=== PATIENT | female | born 1955 | race Caucasian/White ===

== ENCOUNTER 2019-01-27 11:31 | Emergency (ER) | payer MEDICAID ==
--- NOTE | 2019-01-27 12:07 | EDM.PDOC ---
ED HPI GENERAL MEDICAL PROBLEM - General Chief Complaint: ENT Problem Stated Complaint: FB STUCK IN THROAT Time Seen by Provider: 01/27/19 11:37 Source of Information: Reports: Patient History Limitations: Reports: No Limitations - History of Present Illness INITIAL COMMENTS - FREE TEXT/NARRATIVE: 63 yo F with h/o GERD comes in today with complaints of feeling like there is something caught in her throat. She states she has had this feeling for the past 1.5 days. She thinks it may have been a pill or a hot dog. She recently got dentures o Friday and admits she was not wearing them when she ate her hot dog. She states that she wanted to clean them but denies feeling like they don' t fit well or that she is allergic to the glue. She is able to still eat and drink water, though it feels uncomfortable and she states she felt like she had difficulty breathing last night and a cough with some blood this AM. She tried cough medicine last night with no relief. Currently denies any pain, SOB, F/C, N /V. She did recently have an endoscopy on 10/30/18 and was found she had "something wrong with my stomach". PCP is Sophie Lopez. Throat Pain Score (Numeric/FACES): 8 - Related Data Allergies Allergy/AdvReac Type Severity Reaction Status Date / Time No Known Allergies Allergy Verified 01/27/19 11:37 Home Meds: Home Meds Albuterol Sulfate [Albuterol Sulfate Hfa] 2 puff INH QID PRN 01/27/19 [History] Bismuth Subsalicylate [Pepto-Bismol] 262 mg PO ASDIRECTED PRN 01/27/19 [History] Budesonide/Formoterol [Symbicort 160-4.5 MCG] 1 puff INH BID 01/27/19 [History] Calcium Carbonate [Tums] 300 mg PO QID PRN 01/27/19 [History] Celecoxib [CeleBREX] 100 mg PO DAILY 01/27/19 [History] Codeine/Promethazine [Phenergan with Codeine] 5 ml PO Q6HR PRN 01/27/19 [History ] Colestipol [Colestipol HCl] 1 gm PO BID 01/27/19 [History] Dexlansoprazole [Dexilant] 30 mg PO DAILY 01/27/19 [History] Dicyclomine HCl [Bentyl] 10 mg PO QID PRN 01/27/19 [History] Escitalopram Oxalate [Lexapro] 10 mg PO DAILY 01/27/19 [History] Ondansetron [Zofran ODT] 4 mg SL Q6HR PRN 01/27/19 [History] Sucralfate [Carafate] 1 gr PO QID 01/27/19 [History] ED ROS ENT - Review of Systems Review Of Systems: See Below Constitutional: Reports: No Symptoms. Denies: Fever, Chills HEENT: Reports: Other (recently got dentures) Respiratory: Reports: Cough (with some blood this AM) Endocrine: Reports: No Symptoms GI/Abdominal: Reports: No Symptoms. Denies: Abdominal Pain, Constipation, Diarrhea, Nausea, Vomiting : Reports: No Symptoms Musculoskeletal: Reports: No Symptoms Skin: Reports: No Symptoms Neurological: Reports: No Symptoms Hematologic/Lymphatic: Reports: No Symptoms Immunologic: Reports: No Symptoms ED EXAM, ENT - Physical Exam Exam: See Below Exam Limited By: No Limitations General Appearance: Alert, WD/WN, No Apparent Distress Eye Exam: Bilateral Eye: EOMI, Normal Inspection, PERRL Nose: Normal Inspection, Normal Mucousa, No Blood Mouth/Throat: Normal Gums, Tonsillar Erythema, Other (some sores present on soft palate). No: Normal Teeth (no teeth, not wearing dentures), Drooling, Muffled Voice Head: Atraumatic, Normocephalic Neck: Normal Inspection, Supple, Non-Tender, Full Range of Motion Respiratory/Chest: No Respiratory Distress, Lungs Clear, Normal Breath Sounds, No Accessory Muscle Use, Chest Non-Tender Cardiovascular: Normal Peripheral Pulses, Regular Rate, Rhythm, No Edema, No Gallop, No JVD, No Murmur, No Rub GI/Abdominal: Normal Bowel Sounds, Soft, Non-Tender, No Organomegaly, No Distention, No Abnormal Bruit, No Mass Neurological: Alert, Oriented, CN II-XII Intact Psychiatric: Normal Affect, Normal Mood Skin: Warm, Dry, Intact, Normal Color, No Rash Course - Vital Signs Last Recorded V/S: Last Vital Signs Temp 97.4 F 01/27/19 11:39 Pulse 95 01/27/19 11:39 Resp 16 01/27/19 11:39 BP 158/88 H 01/27/19 11:39 Pulse Ox 99 01/27/19 11:39 - Orders/Labs/Meds Orders: Active Orders 24 hr Category Date Time Status CULTURE STREP A CONFIRMATION [RM] Stat Lab 01/27/19 12:15 Results Rapid Strep w/culture conf [STREP SCRN A RAPID W CULT Lab 01/27/19 12:15 Results CONF] [RM] Stat - Re-Assessments/Exams Free Text/Narrative Re-Assessment/Exam: 01/27/19 12:13 Exam not impressive for foreign body obstruction as she is able to swallow, she is not SOB, and is able to eat and drink though it is uncomfortable. There are some sores present on the soft palate. This is likely a viral infection or a reaction to her dentures (not fitting well vs. allergic to the paste). Ordered a Strep screen. 01/27/19 12:44 Strep negative. At this time, she is stable enough to go home. I explained to her this is likely viral in nature and will likely go away on its own. Recommend f/u with PCP and she should return to ED if worsening of symptoms. She agrees with this plan. Departure - Departure Time of Disposition: 12:48 Disposition: Home, Self-Care 01 Condition: Good Clinical Impression: Viral sore throat - Discharge Information *PRESCRIPTION DRUG MONITORING PROGRAM REVIEWED*: Not Applicable *COPY OF PRESCRIPTION DRUG MONITORING REPORT IN PATIENT [place]: Not Applicable Instructions: Sore Throat, [id number] Referrals: Sophie Lopez NP [Primary Care Provider] - Forms: ED Department Discharge Additional Instructions: You were seen in the ED today for possible foreign body stuck in your throat. On exam, it was not found that you had anything stuck in your throat and the fact you can still eat and drink are also signs there is no obstruction at this time. However, there were some sores seen on exam at the back of the throat, which may mean you have a viral infection. Your strep throat culture was negative here, so it is likely a different virus. Symptoms should improve on their own with time. Recommend follow up with your primary care provider. Please return to ED if new or worsening symptoms, such as drooling, not being able to swallow, difficulty breathing. - My Orders Last 24 Hours: My Active Orders 01/27/19 12:15 CULTURE STREP A CONFIRMATION [RM] Stat Rapid Strep w/culture conf [STREP SCRN A RAPID W CULT CONF] [RM] Stat - Assessment/Plan Last 24 Hours: My Active Orders 01/27/19 12:15 CULTURE STREP A CONFIRMATION [] Stat Rapid Strep w/culture conf [STREP SCRN A RAPID W CULT CONF] [RM] Stat
== END 2019-01-27 12:56 | disposition home or self-care (01) ==
LOC: JD.ED 11:31
DX: J02.9 Acute pharyngitis, unspecified (principal); Z79.899 Other long term (current) drug therapy
CPT/HCPCS: 87081; 87430; 99282; 99283

== ENCOUNTER 2020-11-14 18:32 | Inpatient (IN) | payer MEDICARE, MEDICAID ==
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
[2020-11-14] MEDS ORDERED: Metoclopramide 10 MG/2 ML SDV IVPUSH ONE (19:04)
[2020-11-14] MEDS ORDERED: Lactated Ringers 1,000 ML IV ONE (19:04)
[2020-11-14] MEDS ORDERED: diphenhydrAMINE 50 MG/ML SDV IVPUSH ONE (19:06)
[2020-11-14 19:44] LABS: HEMOGLOBIN A1C 5.9 %
[2020-11-14] MEDS: Acetaminophen 325 MG Tab PO PRN (20:33)
[2020-11-14] MEDS ORDERED: Sodium Chloride 0.9% 1,000 ML IV SCH (21:00)
[2020-11-14] MEDS ORDERED: cefTRIAXone 2 GM in Sodium Chloride 0.9% 100 ML IV ONE (21:20)
[2020-11-14] MEDS ORDERED: Metoclopramide 10 MG/2 ML SDV IVPUSH PRN (23:44)
[2020-11-15] MEDS: Dextrose 5%-0.9% NaCl with KCl 1,000 ML IV SCH ×4 (00:12→21:14)
[2020-11-15] MEDS: Acetaminophen 325 MG Tab PO PRN ×3 (02:22→19:51)
--- NOTE | 2020-11-15 07:13 | CR ---
Chest: Portable view of the chest was obtained. Comparison: Prior chest x-ray of 03/14/19. Poor inspiratory effort is seen. Slight areas of atelectasis are seen within both lung bases. No definite acute parenchymal change is seen on this exam. Bony structures are grossly intact. Surgical clips are noted from prior cholecystectomy. Impression: 1. Poor inspiratory effort. Mild atelectasis is noted within both lung bases. 2. Nothing acute is definitely seen. Diagnostic code #2
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
[2020-11-15] MEDS ORDERED: Dicyclomine 10 MG Cap PO PRN (08:50)
[2020-11-15] MEDS ORDERED: Ibuprofen 600 MG Tab PO ONE (08:53)
[2020-11-15] MEDS ORDERED: Albuterol/Ipratropium 3.0-0.5 MG/3 ML Neb Soln NEB PRN (08:58)
[2020-11-15] MEDS ORDERED: DEXLANSOPRAZOLE 30 MG PO SCH (09:00)
[2020-11-15] MEDS ORDERED: Non-Formulary Medication 1 Each (Budesonide/Formoterol 1 PUFF) INH SCH (09:00)
[2020-11-15] MEDS ORDERED: COLESTIPOL 1 GM PO SCH (09:00)
[2020-11-15] MEDS ORDERED: ESCITALOPRAM OXALATE 10 MG PO SCH (09:00)
[2020-11-15] MEDS ORDERED: Celecoxib 100 MG Cap PO SCH (09:00)
[2020-11-15] MEDS: Sucralfate 1 GM Tab PO SCH ×5 (09:45→21:16)
[2020-11-15] MEDS: Nicotine 14 MG/24 Hr Patch TRDERM SCH (11:54)
[2020-11-15] MEDS ORDERED: Non-Formulary Medication 1 Each (Omeprazole 20 MG) PO SCH (16:00)
[2020-11-15] MEDS: Pantoprazole 40 MG Tab.CR PO SCH (16:53)
[2020-11-15] MEDS: Ondansetron 4 MG/2 ML SDV IV PRN (20:24)
[2020-11-15] MEDS: cefTRIAXone 2 GM in Sodium Chloride 0.9% 100 ML IV SCH (20:32)
[2020-11-16] MEDS: Ondansetron 4 MG/2 ML SDV IV PRN (03:40)
[2020-11-16] MEDS: Dextrose 5%-0.9% NaCl with KCl 1,000 ML IV SCH (03:48)
[2020-11-16] MEDS: Pantoprazole 40 MG Tab.CR PO SCH ×2 (05:16→16:07)
--- NOTE | 2020-11-16 07:12 | PCM.PN ---
- General Info Date of Service: 11/16/20 Admission Dx/Problem (Free Text): Admission Diagnosis/Problem Admission Diagnosis/Problem Pyelonephritis Subjective Update: In to see Jody. She is reports she feels better but states she thinks she is constipated. She got milk of mag with no success and we will start scheduled Colace. We did discuss how she has not had any real solid intake for quite some time and this may lead to no bowel movements. Labs continued to look good with no leukocytosis and a CRP that is coming down. Patient reports she was instructed by general surgery to only take in clear liquids given her prior gastric ulcer. Will contact nurse practitioner at [facility] who patient has recently seen for clarification. Blood cultures are negative thus far. Urine cultures are growing mixed jose armando. Patient did have very low-grade fever of 100.6 last night. No other concerns. Functional Status: Reports: Pain Controlled, Tolerating Diet (full liquids ), Ambulating, Urinating. Denies: New Symptoms - Review of Systems General: Reports: No Symptoms. Denies: Fever, Weakness, Fatigue, Malaise HEENT: Reports: No Symptoms. Denies: Headaches, Sore Throat Pulmonary: Reports: No Symptoms. Denies: Shortness of Breath, Cough, Sputum, Wheezing Cardiovascular: Reports: No Symptoms. Denies: Chest Pain, Palpitations Gastrointestinal: Reports: Constipation (feels constipated ). Denies: Abdominal Pain, Diarrhea, Nausea, Vomiting Genitourinary: Reports: No Symptoms. Denies: Pain Musculoskeletal: Reports: No Symptoms Skin: Reports: No Symptoms. Denies: Cyanosis Neurological: Reports: No Symptoms. Denies: Confusion, Difficulty Walking, Gait Disturbance Psychiatric: Reports: No Symptoms - Patient Data Vitals - Most Recent: Last Vital Signs Temp 98.4 F 11/16/20 03:18 Pulse 102 H 11/16/20 03:18 Resp 20 11/16/20 03:18 BP 149/61 H 11/16/20 03:18 Pulse Ox 92 L 11/16/20 03:18 Weight - Most Recent: 429 lb 0.313 oz I&O - Last 24 Hours: Intake & Output 11/15/20 11/16/20 11/16/20 22:59 06:59 14:59 Intake Total 2740 1225 Output Total 1300 1350 Balance 1440 -125 Lab Results Last 24 Hours: Laboratory Results - last 24 hr 11/15/20 11/15/20 11/16/20 Range/Units 06:40 06:48 06:27 WBC 5.02 (3.98-10.04) K/mm3 RBC 3.81 L (3.98-5.22) M/mm3 Hgb 11.4 (11.2-15.7) gm/dl Hct 35.2 (34.1-44.9) % MCV 92.4 (79.4-94.8) fl MCH 29.9 (25.6-32.2) pg MCHC 32.4 (32.2-35.5) g/dl RDW Std Deviation 45.1 (36.4-46.3) fL Plt Count 171 L (182-369) K/mm3 MPV 9.9 (9.4-12.3) fl Neut % (Auto) 75.9 H (34.0-71.1) % Lymph % (Auto) 13.5 L (19.3-51.7) % [place] % (Auto) 9.0 (4.7-12.5) % Eos % (Auto) 1.0 (0.7-5.8) Baso % (Auto) 0.4 (0.1-1.2) % Neut # (Auto) 3.81 (1.56-6.13) K/mm3 Lymph # (Auto) 0.68 L (1.18-3.74) K/mm3 [place] # (Auto) 0.45 H (0.24-0.36) K/mm3 Eos # (Auto) 0.05 (0.04-0.36) K/mm3 Baso # (Auto) 0.02 (0.01-0.08) K/mm3 Sodium 140 (136-145) mEq/L Potassium 4.0 (3.5-5.1) mEq/L Chloride 106 (98-107) mEq/L Carbon Dioxide 24 (21-32) mEq/L Anion Gap 14.0 (5-15) BUN 13 (7-18) mg/dL Creatinine 1.3 H (0.55-1.02) mg/dL Est Cr Clr Drug Dosing 32.12 mL/min Estimated GFR (MDRD) 41 (>60) mL/min BUN/Creatinine Ratio 10.0 L (14-18) Glucose 151 H (80-115) mg/dL Calcium 8.2 L (8.5-10.1) mg/dL Magnesium (1.8-2.4) mg/dl Total Bilirubin 0.6 (0.2-1.0) mg/dL AST 61 H (15-37) U/L ALT 76 H (14-59) U/L Alkaline Phosphatase 70 (46-116) U/L C-Reactive Protein 28.1 H* (<1.0) mg/dL Total Protein 6.2 L (6.4-8.2) g/dl Albumin 2.6 L (3.4-5.0) g/dl Globulin 3.6 gm/dL Albumin/Globulin Ratio 0.7 L (1-2) 11/16/20 Range/Units 06:27 WBC (3.98-10.04) K/mm3 RBC (3.98-5.22) M/mm3 Hgb (11.2-15.7) gm/dl Hct (34.1-44.9) % MCV (79.4-94.8) fl MCH (25.6-32.2) pg MCHC (32.2-35.5) g/dl RDW Std Deviation (36.4-46.3) fL Plt Count (182-369) K/mm3 MPV (9.4-12.3) fl Neut % (Auto) (34.0-71.1) % Lymph % (Auto) (19.3-51.7) % [place] % (Auto) (4.7-12.5) % Eos % (Auto) (0.7-5.8) Baso % (Auto) (0.1-1.2) % Neut # (Auto) (1.56-6.13) K/mm3 Lymph # (Auto) (1.18-3.74) K/mm3 [place] # (Auto) (0.24-0.36) K/mm3 Eos # (Auto) (0.04-0.36) K/mm3 Baso # (Auto) (0.01-0.08) K/mm3 Sodium 140 (136-145) mEq/L Potassium 4.3 (3.5-5.1) mEq/L Chloride 108 H (98-107) mEq/L Carbon Dioxide 21 (21-32) mEq/L Anion Gap 15.3 H (5-15) BUN 8 (7-18) mg/dL Creatinine 1.2 H (0.55-1.02) mg/dL Est Cr Clr Drug Dosing 34.80 mL/min Estimated GFR (MDRD) 45 (>60) mL/min BUN/Creatinine Ratio 6.7 L (14-18) Glucose 154 H (80-115) mg/dL Calcium 7.9 L (8.5-10.1) mg/dL Magnesium 1.9 (1.8-2.4) mg/dl Total Bilirubin 0.4 (0.2-1.0) mg/dL AST 103 H (15-37) U/L ALT 95 H (14-59) U/L Alkaline Phosphatase 78 (46-116) U/L C-Reactive Protein (<1.0) mg/dL Total Protein 5.8 L (6.4-8.2) g/dl Albumin 2.3 L (3.4-5.0) g/dl Globulin 3.5 gm/dL Albumin/Globulin Ratio 0.7 L (1-2) Nash Results Last 24 Hours: Microbiology 11/14/20 19:41 Aerobic Blood Culture - Preliminary Blood - Venous NO GROWTH AFTER 1 DAY Anaerobic Blood Culture - Preliminary NO GROWTH AFTER 1 DAY 11/14/20 19:47 Aerobic Blood Culture - Preliminary Blood - Venous - Lab Draw NO GROWTH AFTER 1 DAY Anaerobic Blood Culture - Preliminary NO GROWTH AFTER 1 DAY Med Orders - Current: Current Medications Acetaminophen (Tylenol) 650 mg PO Q4H PRN PRN Reason: Pain (Mild 1-3)/fever Last Admin: 11/15/20 19:51 Dose: 650 mg Documented by: Albuterol/Ipratropium (Duoneb 3.0-0.5 Mg/3 Ml) 3 ml NEB Q6HRRT PRN PRN Reason: wheezing/SOB/cough Dicyclomine HCl (Bentyl) 20 mg PO QID PRN PRN Reason: Abdominal Pain Potassium Chloride/Dextrose/Sod Cl (D5 Ns With 20 Meq Kcl) 1,000 mls @ 150 mls/hr IV ASDIRECTED DEANNA Last Admin: 11/16/20 03:48 Dose: 150 mls/hr Documented by: Ceftriaxone Sodium 2 gm/ (Sodium Chloride) 100 mls @ 200 mls/hr IV Q24H [facility] Last Admin: 11/15/20 20:32 Dose: 200 mls/hr Documented by: Magnesium Hydroxide (Milk Of Magnesia) 30 ml PO ONETIME ONE Stop: 11/16/20 09:01 Metoclopramide HCl (Reglan) 7.5 mg IVPUSH Q6H PRN PRN Reason: Nausea/Vomiting Miscellaneous Information (Remove Patch) 0 ea TRDERM Q24H [facility] Nicotine (Habitrol) 14 mg TRDERM Q24H [facility] Last Admin: 11/15/20 11:54 Dose: Not Given Documented by: Ondansetron HCl (Zofran) 4 mg IV Q6H PRN PRN Reason: Nausea/Vomiting Last Admin: 11/16/20 03:40 Dose: 4 mg Documented by: Pantoprazole Sodium (Protonix) 40 mg PO BIDAC [facility] Last Admin: 11/16/20 05:16 Dose: 40 mg Documented by: Sucralfate (Carafate) 1 gm PO QID [facility] Last Admin: 11/15/20 21:16 Dose: 1 gm Documented by: Discontinued Medications Acetaminophen (Tylenol) 650 mg PO Q4H PRN PRN Reason: Pain Last Admin: 11/15/20 07:47 Dose: 650 mg Documented by: Celecoxib (Celebrex) 100 mg PO DAILY [facility] Last Admin: 11/15/20 10:11 Dose: Not Given Documented by: Diphenhydramine HCl (Benadryl) 12.5 mg IVPUSH ONETIME ONE Stop: 11/14/20 19:07 Last Admin: 11/14/20 19:23 Dose: 12.5 mg Documented by: Lactated Ringer's (Ringers, Lactated) 1,000 mls @ 999 mls/hr IV .BOLUS ONE Stop: 11/14/20 20:04 Last Admin: 11/14/20 19:23 Dose: 999 mls/hr Documented by: Sodium Chloride (Normal Saline) 1,000 mls @ 999 mls/hr IV ASDIRECTED [facility] Last Admin: 11/14/20 21:18 Dose: 999 mls/hr Documented by: Ceftriaxone Sodium 2 gm/ (Sodium Chloride) 100 mls @ 200 mls/hr IV ONETIME ONE Stop: 11/14/20 21:49 Last Admin: 11/14/20 21:28 Dose: 200 mls/hr Documented by: Ibuprofen (Motrin) 600 mg PO ONETIME ONE Stop: 11/15/20 08:54 Last Admin: 11/15/20 09:44 Dose: 600 mg Documented by: Metoclopramide HCl (Reglan) 7.5 mg IVPUSH ONETIME ONE Stop: 11/14/20 19:05 Last Admin: 11/14/20 19:23 Dose: 7.5 mg Documented by: Non-Formulary Medication (Budesonide/Formoterol) 1 puff INH BID [facility] Last Admin: 11/15/20 10:10 Dose: Not Given Documented by: Non-Formulary Medication (Colestipol) 1 gm PO BID [facility] Last Admin: 11/15/20 10:11 Dose: Not Given Documented by: Non-Formulary Medication (Dexlansoprazole [Dexilant]) 30 mg PO DAILY [facility] Last Admin: 11/15/20 10:11 Dose: Not Given Documented by: Non-Formulary Medication (Escitalopram Oxalate [Lexapro]) 10 mg PO DAILY [facility] Last Admin: 11/15/20 10:11 Dose: Not Given Documented by: Non-Formulary Medication (Omeprazole) 20 mg PO BIDAC [facility] - Exam Quality Assessment: DVT Prophylaxis. No: Supplemental Oxygen, Urine Catheter General: Alert, Oriented, Cooperative, No Acute Distress HEENT: Pupils Equal, Pupils Reactive, Mucous Membr. Moist/[place]: Supple, Trachea Midline Lungs: Clear to Auscultation, Normal Respiratory Effort Cardiovascular: Regular Rate, Regular Rhythm GI/Abdominal Exam: Normal Bowel Sounds, Soft, Non-Tender, No Distention (Female) Exam: Deferred Extremities: Normal Inspection, Normal Range of Motion, Non-Tender, No Pedal Edema, Normal Capillary Refill Skin: Warm, Dry, Intact Neurological: No New Focal Deficit Psy/Mental Status: Alert, Normal Affect, Normal Mood - Patient Data Lab Results Last 24 hrs: Laboratory Results - last 24 hr 11/15/20 11/15/20 11/16/20 Range/Units 06:40 06:48 06:27 WBC 5.02 (3.98-10.04) K/mm3 RBC 3.81 L (3.98-5.22) M/mm3 Hgb 11.4 (11.2-15.7) gm/dl Hct 35.2 (34.1-44.9) % MCV 92.4 (79.4-94.8) fl MCH 29.9 (25.6-32.2) pg MCHC 32.4 (32.2-35.5) g/dl RDW Std Deviation 45.1 (36.4-46.3) fL Plt Count 171 L (182-369) K/mm3 MPV 9.9 (9.4-12.3) fl Neut % (Auto) 75.9 H (34.0-71.1) % Lymph % (Auto) 13.5 L (19.3-51.7) % [place] % (Auto) 9.0 (4.7-12.5) % Eos % (Auto) 1.0 (0.7-5.8) Baso % (Auto) 0.4 (0.1-1.2) % Neut # (Auto) 3.81 (1.56-6.13) K/mm3 Lymph # (Auto) 0.68 L (1.18-3.74) K/mm3 [place] # (Auto) 0.45 H (0.24-0.36) K/mm3 Eos # (Auto) 0.05 (0.04-0.36) K/mm3 Baso # (Auto) 0.02 (0.01-0.08) K/mm3 Sodium 140 (136-145) mEq/L Potassium 4.0 (3.5-5.1) mEq/L Chloride 106 (98-107) mEq/L Carbon Dioxide 24 (21-32) mEq/L Anion Gap 14.0 (5-15) BUN 13 (7-18) mg/dL Creatinine 1.3 H (0.55-1.02) mg/dL Est Cr Clr Drug Dosing 32.12 mL/min Estimated GFR (MDRD) 41 (>60) mL/min BUN/Creatinine Ratio 10.0 L (14-18) Glucose 151 H (80-115) mg/dL Calcium 8.2 L (8.5-10.1) mg/dL Magnesium (1.8-2.4) mg/dl Total Bilirubin 0.6 (0.2-1.0) mg/dL AST 61 H (15-37) U/L ALT 76 H (14-59) U/L Alkaline Phosphatase 70 (46-116) U/L C-Reactive Protein 28.1 H* (<1.0) mg/dL Total Protein 6.2 L (6.4-8.2) g/dl Albumin 2.6 L (3.4-5.0) g/dl Globulin 3.6 gm/dL Albumin/Globulin Ratio 0.7 L (1-2) 11/16/20 Range/Units 06:27 WBC (3.98-10.04) K/mm3 RBC (3.98-5.22) M/mm3 Hgb (11.2-15.7) gm/dl Hct (34.1-44.9) % MCV (79.4-94.8) fl MCH (25.6-32.2) pg MCHC (32.2-35.5) g/dl RDW Std Deviation (36.4-46.3) fL Plt Count (182-369) K/mm3 MPV (9.4-12.3) fl Neut % (Auto) (34.0-71.1) % Lymph % (Auto) (19.3-51.7) % [place] % (Auto) (4.7-12.5) % Eos % (Auto) (0.7-5.8) Baso % (Auto) (0.1-1.2) % Neut # (Auto) (1.56-6.13) K/mm3 Lymph # (Auto) (1.18-3.74) K/mm3 [place] # (Auto) (0.24-0.36) K/mm3 Eos # (Auto) (0.04-0.36) K/mm3 Baso # (Auto) (0.01-0.08) K/mm3 Sodium 140 (136-145) mEq/L Potassium 4.3 (3.5-5.1) mEq/L Chloride 108 H (98-107) mEq/L Carbon Dioxide 21 (21-32) mEq/L Anion Gap 15.3 H (5-15) BUN 8 (7-18) mg/dL Creatinine 1.2 H (0.55-1.02) mg/dL Est Cr Clr Drug Dosing 34.80 mL/min Estimated GFR (MDRD) 45 (>60) mL/min BUN/Creatinine Ratio 6.7 L (14-18) Glucose 154 H (80-115) mg/dL Calcium 7.9 L (8.5-10.1) mg/dL Magnesium 1.9 (1.8-2.4) mg/dl Total Bilirubin 0.4 (0.2-1.0) mg/dL AST 103 H (15-37) U/L ALT 95 H (14-59) U/L Alkaline Phosphatase 78 (46-116) U/L C-Reactive Protein (<1.0) mg/dL Total Protein 5.8 L (6.4-8.2) g/dl Albumin 2.3 L (3.4-5.0) g/dl Globulin 3.5 gm/dL Albumin/Globulin Ratio 0.7 L (1-2) Result Diagrams: 11/16/20 06:27 11/16/20 06:27 Nash Results Last 24 hrs: Microbiology 11/14/20 19:41 Aerobic Blood Culture - Preliminary Blood - Venous NO GROWTH AFTER 1 DAY Anaerobic Blood Culture - Preliminary NO GROWTH AFTER 1 DAY 11/14/20 19:47 Aerobic Blood Culture - Preliminary Blood - Venous - Lab Draw NO GROWTH AFTER 1 DAY Anaerobic Blood Culture - Preliminary NO GROWTH AFTER 1 DAY Sepsis Event Note - Evaluation Sepsis Screening Result: No Definite Risk - Focused Exam Vital Signs: Vital Signs Temp Pulse Resp BP Pulse Ox 11/16/20 03:18 98.4 F 102 H 20 149/61 H 92 L 11/15/20 23:39 98.6 F 93 20 107/63 92 L 11/15/20 21:17 99.3 F 11/15/20 20:38 99.9 F 11/15/20 19:51 100.6 F 11/15/20 19:39 100.6 F 11/15/20 19:36 94 22 H 141/59 H 100 11/15/20 19:21 98.4 F - Problem List & Annotations (1) Prediabetes SNOMED Code(s): 624484683 Code(s): R73.03 - PREDIABETES Status: Chronic Priority: Low Current Visit: No (2) GERD (gastroesophageal reflux disease) SNOMED Code(s): 456955421 Code(s): K21.9 - GASTRO-ESOPHAGEAL REFLUX DISEASE WITHOUT ESOPHAGITIS Sta tus: Chronic Priority: Medium Current Visit: No Qualifiers: Esophagitis presence: esophagitis presence not specified Qualified Code(s): K21.9 - Gastro-esophageal reflux disease without esophagitis (3) PUD (peptic ulcer disease) SNOMED Code(s): 65745126 Code(s): K27.9 - PEPTIC ULC, SITE UNSP, UNSP AC OR CHR, W/O HEMOR OR PERF Status: Chronic Priority: Medium Current Visit: No (4) Migraines SNOMED Code(s): 91711607 Code(s): G43.909 - MIGRAINE, UNSP, NOT INTRACTABLE, WITHOUT STATUS MIGRAINOSUS Status: Chronic Priority: Low Current Visit: No Qualifiers: Migraine type: unspecified Status migrainosus presence: without status migrainosus Intractability: not intractable Qualified Code(s): G43.909 - Migraine, unspecified, not intractable, without status migrainosus (5) Tobacco use SNOMED Code(s): 419438453 Code(s): Z72.0 - TOBACCO USE Status: Chronic Priority: Low Current Visit: Yes (6) Intractable nausea and vomiting SNOMED Code(s): 018455597 Code(s): R11.2 - NAUSEA WITH VOMITING, UNSPECIFIED Status: Resolved Priority: High Current Visit: Yes (7) Lactic acidosis SNOMED Code(s): 09547081 Code(s): E87.2 - ACIDOSIS Status: Resolved Priority: High Current Visit: Yes (8) Urinary tract infection SNOMED Code(s): 62340688 Code(s): N39.0 - URINARY TRACT INFECTION, SITE NOT SPECIFIED Status: Acute Priority: High Current Visit: Yes Qualifiers: Urinary tract infection type: acute pyelonephritis Qualified Code(s): N10 - Acute pyelonephritis (9) Volume depletion, gastrointestinal loss SNOMED Code(s): 42903989 Code(s): E86.9 - VOLUME DEPLETION, UNSPECIFIED Status: Acute Priority: High Current Visit: Yes (10) Severe sepsis SNOMED Code(s): 91865919 Code(s): A41.9 - SEPSIS, UNSPECIFIED ORGANISM; R65.20 - SEVERE SEPSIS WITHOUT SEPTIC SHOCK Status: Acute Priority: High Current Visit: Yes (11) Fever SNOMED Code(s): 123564844 Code(s): R50.9 - FEVER, UNSPECIFIED Status: Acute Priority: High Current Visit: Yes Qualifiers: Fever type: due to other condition Qualified Code(s): R50.81 - Fever presenting with conditions classified elsewhere (12) Atelectasis SNOMED Code(s): 06421002 Code(s): J98.11 - ATELECTASIS Status: Acute Priority: High Current Visit: Yes (13) Hyperbilirubinemia SNOMED Code(s): 96535455 Code(s): E80.6 - OTHER DISORDERS OF BILIRUBIN METABOLISM Status: Resolved Priority: High Current Visit: Yes (14) Transaminitis SNOMED Code(s): 715379008, 317148817 Code(s): R74.01 - ELEVATION OF LEVELS OF LIVER TRANSAMINASE LEVELS Status: Acute Priority: High Current Visit: Yes (15) [id number] kidney injury SNOMED Code(s): 933943308 Code(s): N17.9 - ACUTE KIDNEY FAILURE, UNSPECIFIED; N18.9 - CHRONIC KIDNEY DISEASE, UNSPECIFIED Status: Acute Priority: High Current Visit: Yes Qualifiers: Acute renal failure type: unspecified Chronic kidney disease stage: stage 3 (moderate) Chronic kidney disease stage 3 subtype: stage 3b (GFR 30-44) Qualified Code(s): N17.9 - Acute kidney failure, unspecified; N18.32 - Chronic kidney disease, stage 3b - Problem List Review Problem List Initiated/Reviewed/Updated: Yes - My Orders Last 24 Hours: My Active Orders 11/15/20 08:48 Height and Weight [RC] 06 Intake and Output [RC] 04,16 Oxygen Therapy [RC] PRN Pulse Oximetry [RC] PRN VTE/DVT Education [RC] PER UNIT ROUTINE Vital Signs [RC] Q4HR Acetaminophen [TylenoL] 650 mg PO Q4H PRN Ondansetron [Zofran] 4 mg IV Q6H PRN 11/15/20 08:50 Dicyclomine [Bentyl] 20 mg PO QID PRN 11/15/20 08:58 RT Aerosol Therapy [RC] ASDIRECTED Albuterol/Ipratropium [DuoNeb 3.0-0.5 MG/3 ML] 3 ml NEB Q6HRRT PRN 11/15/20 08:59 RT Incentive Spirometry [RC] ASDIRECTED 11/15/20 09:00 Sucralfate [Carafate] 1 gm PO QID 11/15/20 09:46 Antiembolic Devices [RC] PER UNIT ROUTINE SHIRAZ Hose [Antiembolic Hose] [OM.PC] Routine 11/15/20 10:00 Nicotine [Habitrol] 14 mg TRDERM Q24H 11/15/20 Lunch Full Liquid Diet [DIET] 11/15/20 12:01 Consult to Rivet Passer [CONS] Routine 11/15/20 12:08 Consult to Occupational Therapy [OT Evaluation and Treatment] [CONS] Routine PT Evaluation and Treatment [CONS] Routine 11/15/20 16:00 Pantoprazole [ProTONIX] 40 mg PO BIDAC 11/15/20 21:00 cefTRIAXone [Rocephin] 2 gm Sodium Chloride 0.9% [Normal Saline] 100 ml IV Q24H 11/16/20 06:27 CMP [COMPREHENSIVE METABOLIC PN,CMP] [CHEM] AM CRP [C-REACTIVE PROTEIN] [CHEM] AM MAGNESIUM [CHEM] AM 11/16/20 10:00 Remove Patch 0 ea TRDERM Q24H 11/17/20 05:11 CBC WITH AUTO DIFF [HEME] AM CMP [COMPREHENSIVE METABOLIC PN,CMP] [CHEM] AM CRP [C-REACTIVE PROTEIN] [CHEM] AM MAGNESIUM [CHEM] AM 11/18/20 05:11 CBC WITH AUTO DIFF [HEME] AM CMP [COMPREHENSIVE METABOLIC PN,CMP] [CHEM] AM CRP [C-REACTIVE PROTEIN] [CHEM] AM MAGNESIUM [CHEM] AM 11/19/20 05:11 CBC WITH AUTO DIFF [HEME] AM CMP [COMPREHENSIVE METABOLIC PN,CMP] [CHEM] AM CRP [C-REACTIVE PROTEIN] [CHEM] AM MAGNESIUM [CHEM] AM - Assessment Assessment:: Assessment - day of admission 11/15/20 (admitted night of 11/14/20) * 65 yo female presents to ED with nausea, vomiting, fever, chills, weakness for past 4 days * History of PUD, GERD, Migraines, chronic back pain, HTN, Cholelithiasis, Pre- diabetes and tobacco use * Reports minimal urine output with dark, concentrated urine * 12-lead EKG shows Sinus tachycardia at 112 BPM with enlarged p-waves, Early R- wave transition, and deep t-wave inversion in V1-V3. * CXR shows bilateral lower lobe atelectasis but nothing acute * Labs in ED and on floor: * WBC 17.33 --> 9.13 * hemoglobin 14.5 -->12.3 * platelet 234 -->173 * neutrophils elevated at 15.31 * INR 1.10 * sodium 138 -->140 * potassium 3.8 -->4.0 * anion gap 18.8 -->14.0 * BUN 18-->13, creatinine 1.3-->1.3, GFR 41-->41 * glucose 181 -->151 * magnesium 2.0 * bilirubin 1.7 -->0.6 * AST 79-->61 ALT 94-->76 alkaline phosphatase 89 -->70 * troponin less than 0.017 * CRP 32.2 * Albumin 3.4 -->2.6 * lipase 46 * SARS-CoV-2 RNA negative * hemoglobin A1c 5.9 * ketones 0.42 * lactic acid 2.3 -->1.6 * UA marginally positive with 2+ protein, 1+ occult blood, 1+ leukocyte esterase, 10-20 WBCs, rare WBC clumps, 5-10 squamous epithelial cells noted * Given a fluid bolus and started on IV fluids; given Tylenol for fever; started on 2 g Rocephin, given Reglan for nausea. * Admitted to medical floor for intractable nausea and vomiting, volume depletion, lactic acidosis, UTI/pyelonephritis, and severe sepsis. * Sepsis screen: * UTI with tachycardia, tachypnea and leukocytosis * Lactic acid of 2.3 * Meets criteria 11/16/20 * Reports feeling better overall today. * Low-grade fever of 100.6 overnight. Otherwise no concerns. * Blood cultures negative thus far. Urine culture preliminarily showing mixed jose armando. * Confusion over patient's diet. Will contact general surgery at [facility] to clarify. * Labs today: * WBC 5.02 * hemoglobin 11.4 * platelets 171,000 * neutrophils 3.81 * sodium 140 * potassium 4.3 * anion gap 15.3 * BUN 8 creatinine 1.2 GFR 45 * bilirubin 0.4 * AST 103 ALT 95 alkaline phosphatase 78 * CRP 24.4 * Albumin 2.3 * Discontinue IV fluids * Continue current treatment plan * Discontinue telemetry today - no calls on tele and patient remains very stable * Likely discharge tomorrow pending urine and blood cultures - Plan Plan:: Urinary tract infection Severe sepsis, Resolved Fever Lactic acidosis, Resolved Intractable nausea and vomiting, Resolved Volume depletion, gastrointestinal loss, Resolved Atelectasis Hyperbilirubinemia, Resolved Mild transaminitis, stable Acute on chronic renal injury * IV fluids as ordered * Continue 2gm Rocephin * Tylenol for fevers (monitor labs due to transaminitis) * Blood cultures pending * Urine cultures pending * IS for atelectasis * PRN antiemetics * Clear liquid diet * PT/OT GERD (gastroesophageal reflux disease) PUD (peptic ulcer disease) * Continue home PPI * Continue home Carafate * Obtain old records from recent EGD at [facility] * Avoid NSAIDS if possible Prediabetes * Diabetic diet once tolerating * No need for blood glucose checks currently * Rivet Passer consult Migraines HTN * No concerns currently * Review/reconcile home meds Tobacco use * Nicotine patches * Cessation counseling * Offer patches on discharge Code status: Full Code PCP: Dat Lopez NP DVT prophylaxis: SHIRAZ aguilera Disposition: Patient admitted inpatient for management of sepsis 2/2 UTI/Pyelonephritis. Anticipated LOS 3-4 days.
[2020-11-16] MEDS: Sucralfate 1 GM Tab PO SCH ×4 (08:29→20:08)
[2020-11-16] MEDS ORDERED: Magnesium Hydroxide 400 MG/5 ML Susp 30 ML Cup PO ONE (09:00)
[2020-11-16] MEDS: Nicotine 14 MG/24 Hr Patch TRDERM SCH (10:09)
[2020-11-16] MEDS: Docusate Sodium 100 MG Cap PO SCH ×2 (10:18→20:09)
[2020-11-16] MEDS ORDERED: Bisacodyl 10 MG Supp RECTAL ONE (17:15)
[2020-11-16] MEDS: cefTRIAXone 2 GM in Sodium Chloride 0.9% 100 ML IV SCH (20:05)
[2020-11-17] MEDS ORDERED: Benzocaine/Cetylpyridinium/Menthol Lozenge MUCMEM PRN (01:50)
[2020-11-17] MEDS: Acetaminophen 325 MG Tab PO PRN (02:03)
[2020-11-17] MEDS: Pantoprazole 40 MG Tab.CR PO SCH (06:28)
[2020-11-17] MEDS: Docusate Sodium 100 MG Cap PO SCH (09:45)
[2020-11-17] MEDS: Sucralfate 1 GM Tab PO SCH ×2 (09:45→13:26)
[2020-11-17] MEDS: Nicotine 14 MG/24 Hr Patch TRDERM SCH (09:46)
--- NOTE | 2020-11-17 09:46 | PCM.DCSUM1 ---
Discharge Summary - Hospital Course HPI Initial Comments: This is a 65-year-old female who presents to ED on the evening of 11/14/20 with a complaint of vomiting, weakness, and chills. Reports intractable nausea and vomiting for the last 4 days with mostly bilious emesis. She was reportedly told with a recent EGD that she has a large ulcer in her stomach and also had a colonoscopy which revealed several polyps but none were malignant. She denies any diarrhea but has had fever and chills. She is very weak and dizzy on standing. She reports minimal water intake and only voiding once the day prior to being seen. She reports no urine output the day before that. Complains of mild headache and nonproductive cough. No urinary pain but reports urine is dark and concentrated. She was able to keep down some Pepto-Bismol. Reports she was recently diagnosed as a prediabetic but is controlling this with diet and no medications. Reports she is on blood pressure medications but has been unable to keep any of her medications down. Reports multiple COVID-19 tests and all have been negative. In the ED temp was 37.2 Celsius. Pulse 122. Respirations 24. Blood pressure 127/80. Pulse ox 95%. Twelve-lead EKG is obtained showing a sinus tachycardia at 1 1 2 bpm. P waves are enlarged. There is changes suggesting left atrial hypertrophy and early R wave transition. Noted deep T wave inversion in V1 to V3 and cannot rule out anterior septal ischemia. Labs are obtained showing a leukocytosis of 17.33. Hemoglobin 14.5. Platelets of 234,000. Neutrophils are elevated at 15.31. INR is 1.10. Sodium 138. Potassium 3.8. Chloride 100. Carbon dioxide 23. Anion gap is high at 18.8. BUN is 18. Creatinine 1.3. GFR 41. Glucose 181. Calcium is 9.1. Magnesium 2.0. Bilirubin high at 1.7. AST is 49, ALT 94, alkaline phosphatase 89. Troponin is less than 0.017. CRP is very high at 32.2. Protein is 7.5. Albumin is 3.4. Lipase is 46. Hemoglobin A1c is 5.9%. Ketones 0.42. SARS Covid 2 RNA is negative. Lactic acid is high at 2.3. UA appears positive with 2+ protein, 1+ occult blood, 1+ leukocyte esterase, 10-20 urine WBCs, rare urine WBC clumps, but 5-10 squamous epithelial cells. She is given Tylenol and a 1 L fluid bolus she is also started on 2 g Rocephin. Chest x-ray is obtained showing poor inspiratory effort with mild atelectasis noted in both lung bases. Nothing acute is definitively seen. She carries a history of cholelithiasis, GERD, PUD, chronic back pain, migra antonio, depression, prediabetic, daily tobacco use. She is a full code. Her primary care provider is Sophie Lopez NP. Diagnosis: Stroke: No - Discharge Data Discharge Date: 11/17/20 (Admit date: 11/14/20) Discharge Disposition: Home, Self-Care 01 Condition: Good - Referral to Home Health Primary Care Physician: Sophie Lopez NP - Discharge Diagnosis/Problem(s) (1) Prediabetes SNOMED Code(s): 935375479 ICD Code: R73.03 - PREDIABETES Status: Chronic Priority: Low Current Visit: No (2) GERD (gastroesophageal reflux disease) SNOMED Code(s): 524403361 ICD Code: K21.9 - GASTRO-ESOPHAGEAL REFLUX DISEASE WITHOUT ESOPHAGITIS Status: Chronic Priority: Medium Current Visit: No Qualifiers: Esophagitis presence: esophagitis presence not specified Qualified Code(s): K21.9 - Gastro-esophageal reflux disease without esophagitis (3) PUD (peptic ulcer disease) SNOMED Code(s): 61522643 ICD Code: K27.9 - PEPTIC ULC, SITE UNSP, UNSP AC OR CHR, W/O HEMOR OR PERF Status: Chronic Priority: Medium Current Visit: No (4) Migraines SNOMED Code(s): 82352202 ICD Code: G43.909 - MIGRAINE, UNSP, NOT INTRACTABLE, WITHOUT STATUS MIGRAINOSUS Status: Chronic Priority: Low Current Visit: No Qualifiers: Migraine type: unspecified Status migrainosus presence: without status migrainosus Intractability: not intractable Qualified Code(s): G43.909 - Migraine, unspecified, not intractable, without status migrainosus (5) Tobacco use SNOMED Code(s): 939396260 ICD Code: Z72.0 - TOBACCO USE Status: Chronic Priority: Low Current Visit: Yes (6) Intractable nausea and vomiting SNOMED Code(s): 957803520 ICD Code: R11.2 - NAUSEA WITH VOMITING, UNSPECIFIED Status: Resolved Priority: High Current Visit: Yes (7) Lactic acidosis SNOMED Code(s): 37748522 ICD Code: E87.2 - ACIDOSIS Status: Resolved Priority: High Current Visit: Yes (8) Urinary tract infection SNOMED Code(s): 15950458 ICD Code: N39.0 - URINARY TRACT INFECTION, SITE NOT SPECIFIED Status: Acute Priority: High Current Visit: Yes Qualifiers: Urinary tract infection type: acute pyelonephritis Qualified Code(s): N10 - Acute pyelonephritis (9) Volume depletion, gastrointestinal loss SNOMED Code(s): 34820288 ICD Code: E86.9 - VOLUME DEPLETION, UNSPECIFIED Status: Resolved Priority: High Current Visit: Yes (10) Severe sepsis SNOMED Code(s): 99649121 ICD Code: A41.9 - SEPSIS, UNSPECIFIED ORGANISM; R65.20 - SEVERE SEPSIS WITHOUT SEPTIC SHOCK Status: Resolved Priority: High Current Visit: Yes (11) Fever SNOMED Code(s): 640447365 ICD Code: R50.9 - FEVER, UNSPECIFIED Status: Resolved Priority: High Current Visit: Yes Qualifiers: Fever type: due to other condition Qualified Code(s): R50.81 - Fever presenting with conditions classified elsewhere (12) Atelectasis SNOMED Code(s): 73888537 ICD Code: J98.11 - ATELECTASIS Status: Acute Priority: High Current Visit: Yes (13) Hyperbilirubinemia SNOMED Code(s): 07158491 ICD Code: E80.6 - OTHER DISORDERS OF BILIRUBIN METABOLISM Status: Resolved Priority: High Current Visit: Yes (14) Transaminitis SNOMED Code(s): 268168734, 049592802 ICD Code: R74.01 - ELEVATION OF LEVELS OF LIVER TRANSAMINASE LEVELS Status: Acute Priority: High Current Visit: Yes (15) [id number] kidney injury SNOMED Code(s): 871990810 ICD Code: N17.9 - ACUTE KIDNEY FAILURE, UNSPECIFIED; N18.9 - CHRONIC KIDNEY DISEASE, UNSPECIFIED Status: Acute Priority: High Current Visit: Yes Qualifiers: Acute renal failure type: unspecified Chronic kidney disease stage: stage 3 (moderate) Chronic kidney disease stage 3 subtype: stage 3b (GFR 30-44) Qualified Code(s): N17.9 - Acute kidney failure, unspecified; N18.32 - Chronic kidney disease, stage 3b - Patient Summary/Data Consults: Consultations 11/15/20 12:01 Consult to Income Auditor [CONS] Routine 11/15/20 12:08 Consult to Occupational Therapy [OT Evaluation and Treatment] [CONS] Routine PT Evaluation and Treatment [CONS] Routine Labs Pending at D/C: Blood cultures negative after 2 days Urine cultures suggestive of contamination Recommended Follow-up Testing/Procedures: Follow-up with primary care provider within 7-10 days of discharge, sooner if needed. Hospital Course: This is a 65-year-old female who presented to ED on 11/14/2020 with nausea, vomiting, fever, chills, and weakness for 4 days. In the ED she was noted to have leukocytosis of 17.33 and a marginally positive UA with 1+ leukocyte esterase, 10-20 WBCs, rare WBC clumps, but 5-10 squamous epithelial cells. CRP was 32.2. lactic acid in the ED was noted to be 2.3 and she was given IV fluid bolus. She was noted to be tachycardic and tachypneic so she was diagnosed with severe sepsis. She did have CVA tenderness. She was started on 2 g IV Ro cephin. Blood cultures remain negative. Leukocytosis did resolve rapidly however patient was noted to have a fever of 102.7 overnight on her admission. There was some confusion over the patient's diet as she reports that she had been instructed to remain on a clear liquid diet. She had recently undergone an EGD and colonoscopy by Dr. Eli at [facility] and was noted to have significant peptic ulcer disease. She also was noted to have several polyps removed. Contacted Julianne Reyes NP at [facility] with general surgery who agreed that patient was likely confused and she should avoid spicy food but can eat whatever she would like. A1c was obtained and was 5.9 the patient was advanced to a diabetic diet. She was noted to have atelectasis on admission and was given an incentive spirometer. She was instructed to continue this on discharge for 1-2 more weeks. Liver enzymes were marginally elevated and were variable. This is likely due to medications. Blood cultures remain negative. Our dietitian did visit with her regarding her prediabetes and peptic ulcer disease. She reports smoking a few cigarettes a day and she was offered a nicotine patch during her stay which she refused. She was also offered nicotine patches on discharge and refused. She was provided contact information for cessation assistance if she desires. UA ultimately returned showing mixed jose armando suggest fred of contamination. Given the fact that patient had leukocytosis, will elevated CRP, lactic acidosis, and a fever overnight on admission it is felt patient should complete treatment of antibiotic and therefore she will be discharged on 4 more pills of 500 mg 3 times daily Keflex. She should take her first dose tonight, 11/17/2020 and will complete treatment after her last dose tomorrow. There was significant confusion on the patient's home medications as she reports she does not take several of the medications that were listed on her med list. Pharmacy attempted to contact multiple pharmacies and it appears the patient did not fill many of her medications since July or August. All of patient's home medications were continued at discharge and she was instructed to follow-up with her primary care provider regarding her home medications. Instructed to follow-up with primary care provider early next week. Recommend repeat CBC, CMP, and magnesium at that appointment. She did work with PT/OT who recommended home independent. Julianne Reyes NP did recommend patient follow-up with their office in 2 to 3 months as she would likely benefit from a repeat EGD to ensure healing of her peptic ulcers. Patient discharged home today. - Patient Instructions Diet: Diabetic Diet Activity: As Tolerated Driving: Do Not Drive Showering/Bathing: May Shower Notify Provider of: Fever, Increased Pain, Nausea and/or Vomiting Other/Special Instructions: Follow-up with primary care provider early next week, sooner if needed. Recommend you discuss your home medications at that time as it appears you have not been taking them correctly. We spoke with Julianne Price NP at [facility]. They are recommending follow-up with them in 2-3 months as you will likely need repeat endoscopy (EGD) for your stomach problems. Julianne also confirmed that you do not need to be on a clear liquid diet. You can eat whatever you want but should avoid spicy foods due to your ulcer. You may find some foods irritate your stomach and you should avoid these until your stomach heals. You should try and follow the dietary recommendations we discussed with as you are a pre-diabetic. Resume home medications as directed. You were sent a prescription for an antibiotic. Take this as prescribed until you run out, even if you feel 100% better. You should take your first dose tonight (11/17/20) around 9PM. Continue to utilize your incentive spirometer (Clear/blue device you inhale through) for the next 1-2 weeks. This will help ensure your lungs are filled. Should symptoms return or worsen contact primary care provider or return to the Emergency Department. - Discharge Plan *PRESCRIPTION DRUG MONITORING PROGRAM REVIEWED*: Not Applicable *COPY OF PRESCRIPTION DRUG MONITORING REPORT IN PATIENT LINDSEY: Not Applicable Prescriptions/Med Rec: cephALEXin [Keflex] 500 mg PO Q8H #4 cap Tobacco Cessation Medication: Prescription Refused Home Medications: Home Meds Albuterol Sulfate [Albuterol Sulfate Hfa] 2 puff INH Q4H PRN 01/27/19 [History] Calcium Carbonate [Tums] 300 mg PO QID PRN 01/27/19 [History] Dicyclomine HCl [Bentyl] 20 mg PO QID PRN 01/27/19 [History] Sucralfate [Carafate] 1 gm PO QID 01/27/19 [History] Omeprazole 20 mg PO BIDAC 11/15/20 [History] cephALEXin [Keflex] 500 mg PO Q8H #4 cap 11/17/20 [Rx] Oxygen Therapy Mode: Room Air Patient Handouts: Pyelonephritis, Adult, [id number], How to Use an Incentive Spirometer, Sepsis, Diagnosis, Adult, Prediabetes Eating Plan, Steps to Quit Smoking Forms: ED Department Discharge Referrals: Sophie Lopez NP [Primary Care Provider] - 11/24/20 1:30 pm (check in at 1:15 and appt. time is 1:30) - Discharge Summary/Plan Comment DC Time >30 min.: Yes (45 mins ) - General Info Date of Service: 11/17/20 Admission Dx/Problem (Free Text: Admission Diagnosis/Problem Admission Diagnosis/Problem Pyelonephritis Functional Status: Reports: Pain Controlled, Tolerating Diet, Ambulating, Urinating, Incentive Spirometry. Denies: New Symptoms - Review of Systems General: Reports: No Symptoms. Denies: Fever, Weakness, Fatigue, Malaise, Chills HEENT: Reports: No Symptoms. Denies: Headaches, Sore Throat Pulmonary: Reports: Cough (occasional chronic ). Denies: Shortness of Breath, Sputum, Wheezing Cardiovascular: Reports: No Symptoms. Denies: Chest Pain, Palpitations, Dyspnea on Exertion, Edema Gastrointestinal: Reports: No Symptoms. Denies: Abdominal Pain, Constipation, Diarrhea, Nausea, Vomiting Genitourinary: Reports: No Symptoms. Denies: Pain Musculoskeletal: Reports: No Symptoms Skin: Reports: No Symptoms. Denies: Cyanosis Neurological: Reports: No Symptoms. Denies: Confusion, Pre-Existing Deficit, Difficulty Walking, Gait Disturbance Psychiatric: Reports: No Symptoms - Patient Data Vitals - Most Recent: Last Vital Signs Temp 98.2 F 11/17/20 07:30 Pulse 87 11/17/20 07:30 Resp 20 11/17/20 07:30 BP 129/71 11/17/20 07:30 Pulse Ox 97 11/17/20 07:30 Weight - Most Recent: 190 lb I&O - Last 24 hours: Intake & Output 11/16/20 11/17/20 11/17/20 22:59 06:59 14:59 Intake Total 1240 400 Output Total 900 500 Balance 340 -100 Lab Results - Last 24 hrs: Laboratory Results - last 24 hr 11/17/20 11/17/20 Range/Units 06:20 06:20 WBC 6.14 (3.98-10.04) K/mm3 RBC 4.06 (3.98-5.22) M/mm3 Hgb 12.1 (11.2-15.7) gm/dl Hct 37.3 (34.1-44.9) % MCV 91.9 (79.4-94.8) fl MCH 29.8 (25.6-32.2) pg MCHC 32.4 (32.2-35.5) g/dl RDW Std Deviation 44.9 (36.4-46.3) fL Plt Count 205 (182-369) K/mm3 MPV 10.1 (9.4-12.3) fl Neut % (Auto) 66.4 (34.0-71.1) % Lymph % (Auto) 18.2 L (19.3-51.7) % Florence % (Auto) 13.8 H (4.7-12.5) % Eos % (Auto) 1.1 (0.7-5.8) Baso % (Auto) 0.3 (0.1-1.2) % Neut # (Auto) 4.07 (1.56-6.13) K/mm3 Lymph # (Auto) 1.12 L (1.18-3.74) K/mm3 Florence # (Auto) 0.85 H (0.24-0.36) K/mm3 Eos # (Auto) 0.07 (0.04-0.36) K/mm3 Baso # (Auto) 0.02 (0.01-0.08) K/mm3 Sodium 141 (136-145) mEq/L Potassium 4.3 (3.5-5.1) mEq/L Chloride 104 (98-107) mEq/L Carbon Dioxide 26 (21-32) mEq/L Anion Gap 15.3 H (5-15) BUN 10 (7-18) mg/dL Creatinine 1.3 H (0.55-1.02) mg/dL Est Cr Clr Drug Dosing 32.12 mL/min Estimated GFR (MDRD) 41 (>60) mL/min BUN/Creatinine Ratio 7.7 L (14-18) Glucose 120 H (80-115) mg/dL Calcium 8.7 (8.5-10.1) mg/dL Magnesium 2.2 (1.8-2.4) mg/dl Total Bilirubin 0.5 (0.2-1.0) mg/dL AST 77 H (15-37) U/L ALT 106 H (14-59) U/L Alkaline Phosphatase 102 (46-116) U/L C-Reactive Protein 19.7 H* (<1.0) mg/dL Total Protein 6.7 (6.4-8.2) g/dl Albumin 2.6 L (3.4-5.0) g/dl Globulin 4.1 gm/dL Albumin/Globulin Ratio 0.6 L (1-2) ASHTYN Results - Last 24 hrs: Microbiology 11/14/20 22:50 Urine Culture - Final Urine, Bladder MIXED JOSE ARMANDO SUGGESTIVE OF CONTAMINATION. 11/14/20 19:41 Aerobic Blood Culture - Preliminary Blood - Venous NO GROWTH AFTER 2 DAYS Anaerobic Blood Culture - Preliminary NO GROWTH AFTER 2 DAYS 11/14/20 19:47 Aerobic Blood Culture - Preliminary Blood - Venous - Lab Draw NO GROWTH AFTER 2 DAYS Anaerobic Blood Culture - Preliminary NO GROWTH AFTER 2 DAYS Med Orders - Current: Current Medications Acetaminophen (Tylenol) 650 mg PO Q4H PRN PRN Reason: Pain (Mild 1-3)/fever Last Admin: 11/17/20 02:03 Dose: 650 mg Documented by: Albuterol/Ipratropium (Duoneb 3.0-0.5 Mg/3 Ml) 3 ml NEB Q6HRRT PRN PRN Reason: wheezing/SOB/cough Last Admin: 11/17/20 02:17 Dose: 3 ml Documented by: Benzocaine/Menthol (Cepacol Sore Throat) 1 lozenge MUCMEM Q2HR PRN PRN Reason: Sore Throat Last Admin: 11/17/20 02:03 Dose: 1 lozenge Documented by: Dicyclomine HCl (Bentyl) 20 mg PO QID PRN PRN Reason: Abdominal Pain Docusate Sodium (Colace) 100 mg PO BID [facility] Last Admin: 11/17/20 09:45 Dose: Not Given Documented by: Ceftriaxone Sodium 2 gm/ (Sodium Chloride) 100 mls @ 200 mls/hr IV Q24H [facility] Last Admin: 11/16/20 20:05 Dose: 200 mls/hr Documented by: Metoclopramide HCl (Reglan) 7.5 mg IVPUSH Q6H PRN PRN Reason: Nausea/Vomiting Miscellaneous Information (Remove Patch) 0 ea TRDERM Q24H [facility] Last Admin: 11/16/20 10:09 Dose: Not Given Documented by: Nicotine (Habitrol) 14 mg TRDERM Q24H [facility] Last Admin: 11/16/20 10:09 Dose: Not Given Documented by: Ondansetron HCl (Zofran) 4 mg IV Q6H PRN PRN Reason: Nausea/Vomiting Last Admin: 11/16/20 03:40 Dose: 4 mg Documented by: Pantoprazole Sodium (Protonix) 40 mg PO BIDAC [facility] Last Admin: 11/17/20 06:28 Dose: 40 mg Documented by: Sucralfate (Carafate) 1 gm PO QID [facility] Last Admin: 11/17/20 09:45 Dose: 1 gm Documented by: Discontinued Medications Acetaminophen (Tylenol) 650 mg PO Q4H PRN PRN Reason: Pain Last Admin: 11/15/20 07:47 Dose: 650 mg Documented by: Bisacodyl (Dulcolax) 10 mg RECTAL ONETIME ONE Stop: 11/16/20 17:16 Last Admin: 11/16/20 17:25 Dose: 10 mg Documented by: Celecoxib (Celebrex) 100 mg PO DAILY [facility] Last Admin: 11/15/20 10:11 Dose: Not Given Documented by: Diphenhydramine HCl (Benadryl) 12.5 mg IVPUSH ONETIME ONE Stop: 11/14/20 19:07 Last Admin: 11/14/20 19:23 Dose: 12.5 mg Documented by: Lactated Ringer's (Ringers, Lactated) 1,000 mls @ 999 mls/hr IV .BOLUS ONE Stop: 11/14/20 20:04 Last Admin: 11/14/20 19:23 Dose: 999 mls/hr Documented by: Sodium Chloride (Normal Saline) 1,000 mls @ 999 mls/hr IV ASDIRECTED [facility] Last Admin: 11/14/20 21:18 Dose: 999 mls/hr Documented by: Ceftriaxone Sodium 2 gm/ (Sodium Chloride) 100 mls @ 200 mls/hr IV ONETIME ONE Stop: 11/14/20 21:49 Last Admin: 11/14/20 21:28 Dose: 200 mls/hr Documented by: Potassium Chloride/Dextrose/Sod Cl (D5 Ns With 20 Meq Kcl) 1,000 mls @ 150 mls/hr IV ASDIRECTED [facility] Last Admin: 11/16/20 03:48 Dose: 150 mls/hr Documented by: Ibuprofen (Motrin) 600 mg PO ONETIME ONE Stop: 11/15/20 08:54 Last Admin: 11/15/20 09:44 Dose: 600 mg Documented by: Magnesium Hydroxide (Milk Of Magnesia) 30 ml PO ONETIME ONE Stop: 11/16/20 09:01 Last Admin: 11/16/20 08:28 Dose: 30 ml Documented by: Metoclopramide HCl (Reglan) 7.5 mg IVPUSH ONETIME ONE Stop: 11/14/20 19:05 Last Admin: 11/14/20 19:23 Dose: 7.5 mg Documented by: Non-Formulary Medication (Budesonide/Formoterol) 1 puff INH BID [facility] Last Admin: 02/24/21 10:10 Dose: Not Given Documented by: Non-Formulary Medication (Colestipol) 1 gm PO BID [facility] Last Admin: 11/15/20 10:11 Dose: Not Given Documented by: Non-Formulary Medication (Dexlansoprazole [Dexilant]) 30 mg PO DAILY [facility] Last Admin: 11/15/20 10:11 Dose: Not Given Documented by: Non-Formulary Medication (Escitalopram Oxalate [Lexapro]) 10 mg PO DAILY [facility] Last Admin: 11/15/20 10:11 Dose: Not Given Documented by: Non-Formulary Medication ([facility]) [facility] Quality Assessment: Reports: DVT Prophylaxis. Denies: Supplemental Oxygen, Urine Catheter General: Reports: Alert, Oriented, Cooperative, No Acute Distress HEENT: Reports: Pupils Equal, Pupils Reactive, Mucous Membr. Moist/Mena Neck: Reports: Supple, Trachea Midline Lungs: Reports: Clear to Auscultation, Normal Respiratory Effort Cardiovascular: Reports: Regular Rate, Regular Rhythm GI/Abdominal Exam: Normal Bowel Sounds, Soft, Non-Tender, No Distention (Female) Exam: Deferred Rectal (Female) Exam: Deferred Back Exam: Reports: Normal Inspection, Full Range of Motion Extremities: Normal Inspection, Normal Range of Motion, Non-Tender, No Pedal Edema, Normal Capillary Refill Skin: Reports: Warm, Dry, Intact Neurological: Reports: No New Focal Deficit Psy/Mental Status: Reports: Alert, Normal Affect, Normal Mood
== END 2020-11-17 13:15 | disposition home or self-care (01) | DRG 872 ==
LOC: JD.ED 18:32 → JD.MS 22:00
PROVIDERS: ADMIT Family Medicine; ATTEND Family Medicine
DX: A41.9 Sepsis, unspecified organism (principal); N10 Acute pyelonephritis; J98.11 Atelectasis; N17.9 Acute kidney failure, unspecified; R65.20 Severe sepsis without septic shock; R73.03 Prediabetes; E86.9 Volume depletion, unspecified; K27.7 Chronic peptic ulcer, site unspecified, without hemorrhage or perforation; E87.2 Acidosis; H54.7 Unspecified visual loss; I10 Essential (primary) hypertension; E80.6 Other disorders of bilirubin metabolism; R74.01 Elevation of levels of liver transaminase levels; N18.32 Chronic kidney disease, stage 3b; J45.909 Unspecified asthma, uncomplicated; I12.9 Hypertensive chronic kidney disease with stage 1 through stage 4 chronic kidney disease, or unspecified chronic kidney disease; K59.09 Other constipation; K21.9 Gastro-esophageal reflux disease without esophagitis; Z87.11 Personal history of peptic ulcer disease; K76.0 Fatty (change of) liver, not elsewhere classified; G89.29 Other chronic pain; F17.200 Nicotine dependence, unspecified, uncomplicated; M54.9 Dorsalgia, unspecified; F32.9 Major depressive disorder, single episode, unspecified; Z90.49 Acquired absence of other specified parts of digestive tract; Z90.710 Acquired absence of both cervix and uterus; G43.909 Migraine, unspecified, not intractable, without status migrainosus; Z79.51 Long term (current) use of inhaled steroids; Z79.899 Other long term (current) drug therapy; Z20.822 Contact with and (suspected) exposure to COVID-19
CPT/HCPCS: 36415; 71045; 80053; 81001; 82009; 83036; 83605; 83690; 83735; 84484; 85025; 85610; 85730; 86140; 87040 ×2; 93005; 96365; 96375; 99285; A9270; J0696; J1200; J2765; J7030; J7120; U0002; 85027; 87086; 93010; 94640; 97116-GP; 97162-GP; 97165-GO; 97530-GP; J2405; J3480; J7620-GY